=== PATIENT | female | born 1970 | race Caucasian/White ===

== ENCOUNTER 2018-02-02 13:05 | Emergency (ER) | payer OTHER ==
[~2018-02-02] VITALS: Ht 170.2 cm; Wt 83.9 kg
[~2018-02-02 13:05] MED LIST: ASPIR 8181 MG PO; CIPROFLOXACIN250 MG PO; EXCEDRIN EXTRA1 EAC1 PO; LEVOTHYROXINE25 MCG PO; ZOFRAN ODT4 MG PO
[2018-02-02] MEDS ORDERED: NEXIUM20 MG PO (13:22)
[2018-02-02] MEDS ORDERED: ONDANSETRON ODT8 MG PO (15:36)
== END 2018-02-02 16:15 | disposition home or self-care (01) ==
LOC: ED 13:05
DX: G43.909 Migraine, unspecified, not intractable, without status migrainosus (principal); Z88.8 Allergy status to other drugs, medicaments and biological substances; Z88.5 Allergy status to narcotic agent; Z79.82 Long term (current) use of aspirin; Z79.899 Other long term (current) drug therapy
CPT/HCPCS: 96361; 96374; 96375; 99283; J1200; J1885; J2405; J7030

== ENCOUNTER 2018-08-16 10:35 | Emergency (ER) | payer OTHER ==
[~2018-08-16] VITALS: Ht 170.2 cm; Wt 83.9 kg
[~2018-08-16 10:35] MED LIST changes: +NEXIUM20 MG PO; +ONDANSETRON ODT8 MG PO
[2018-08-16] MEDS ORDERED: LEVOTHYROXINE75 MCG PO (10:52)
[2018-08-16] MEDS ORDERED: ONDANSETRON ODT8 MG PO (13:10)
== END 2018-08-16 13:22 | disposition home or self-care (01) ==
LOC: ED 10:35
DX: G43.909 Migraine, unspecified, not intractable, without status migrainosus (principal); E03.9 Hypothyroidism, unspecified; Z88.5 Allergy status to narcotic agent; Z88.8 Allergy status to other drugs, medicaments and biological substances; Z79.899 Other long term (current) drug therapy; Z79.82 Long term (current) use of aspirin
CPT/HCPCS: 96374; 96375; 99284-25; J1885; J2405; J7030

== ENCOUNTER 2018-10-31 07:45 | Emergency (ER) | payer OTHER ==
[~2018-10-31] VITALS: Ht 170.2 cm; Wt 83.9 kg
--- OUTSIDE RECORDS SUMMARY | ~2018-10-31 | XMS | Clinical Summary ---
Demographics + + + | Address | [address] | | | [place] [address] | + + + | Home Phone | | + + + | Preferred Language | Unknown | + + + | Marital Status | | + + + | Catholic Affiliation | Unknown | + + + | Race | Unknown | + + + | Ethnic Group | Unknown | + + + Author + + + | Author | [facility] | | | and [place] | + + + | Organization | [facility] | | | and [place] | + + + | Address | Unknown | + + + | Phone | Unavailable | + + + Support + + +---------+ + | Name | Relationship | Address | Phone | + + +---------+ + | Huy Moore | ECON | Unknown | | + + +---------+ + Care Team Providers + +------+ + | Care Shadowgraph Operator Name | Role | Phone | + +------+ + | Kristie Rausch | PP | | | PA-C | | | + +------+ + Allergies + + + + + + | Active Allergy | Reactions | Severity | Noted | Comments | | | | | Date | | + + + + + + | Prochlorperazine | Hives, Anxiety, Rash | Low | 02/06/20 | | | | | | 18 | | + + + + + + | Penicillins | Hives, Rash | Low | 02/06/20 | | | | | | 18 | | + + + + + + | Promethazine | Hives, Anxiety, Rash | Low | 02/06/20 | | | | | | 18 | | + + + + + + | Metoclopramide | Other (See Comments) | | 10/09/19 | Reaction: Makes | | | | | 19 | her feel like she is | | | | | | crazy | + + + + + + | Pseudoephedrine | Palpitations | Low | 02/06/20 | | | | | | 18 | | + + + + + + Medications + + + +---------+------+------+-------+ | Medication | Sig | Dispensed | Refills | Star | End | Statu | | | | | | t | Date | s | | | | | | Date | | | + + + +---------+------+------+-------+ | Turmeric 500 MG | Take by mouth. | | 0 | | | Activ | | CAPS | | | | | | e | + + + +---------+------+------+-------+ | Cetirizine HCl | Take 10 mg by mouth | | 0 | | | Activ | | (ZYRTEC ALLERGY) 10 | Daily. | | | | | e | | MG liqui-gel | | | | | | | + + + +---------+------+------+-------+ | Multiple | Take by mouth. | | 0 | | | Activ | | Vitamins-Minerals | | | | | | e | | (MULTIVITAMIN | | | | | | | | GUMMIES ADULTS PO) | | | | | | | + + + +---------+------+------+-------+ | Cholecalciferol | Take by mouth | | 0 | | | Activ | | (VITAMIN D-3) 2000 | Daily. | | | | | e | | units CAPS | | | | | | | + + + +---------+------+------+-------+ | dicyclomine | Take 20 mg by mouth | | 0 | | | Activ | | (BENTYL) 20 MG | every 6 hours. | | | | | e | | tablet | | | | | | | + + + +---------+------+------+-------+ | Cranberry-Vit | Take by mouth. | | 0 | | | Activ | | X-Xljzoguqk-Pk | | | | | | e | | (CRANBERRY PLUS | | | | | | | | PROBIOTIC PO) | | | | | | | + + + +---------+------+------+-------+ | Calcium-Magnesium | Take by mouth. | | 0 | | | Activ | | (CALCIUM MAGNESIUM | | | | | | e | | 750) 300-300 MG TABS | | | | | | | + + + +---------+------+------+-------+ | LEVOTHYROXINE | Take by mouth. | | 0 | | | Activ | | SODIUM PO | | | | | | e | + + + +---------+------+------+-------+ | ondansetron | Take 4 mg by mouth | | 0 | | | Activ | | (ZOFRAN ODT) 4 mg | every 8 hours as | | | | | e | | disintegrating | needed for Nausea. | | | | | | | tablet | | | | | | | + + + +---------+------+------+-------+ | FLUTICASONE | Apply topically. | | 0 | | | Activ | | PROPIONATE EX | | | | | | e | + + + +---------+------+------+-------+ | albuterol | Inhale 2 puffs into | | 0 | | | Activ | | (VENTOLIN HFA) 90 | the lungs every 6 | | | | | e | | mcg/puff inhaler | hours as needed for | | | | | | | | Wheezing. | | | | | | + + + +---------+------+------+-------+ | EPINEPHrine | | | 0 | 08/1 | | Activ | | auto-injector 0.3 | | | | 4/20 | | e | | mg/0.3 mL injection | | | | 18 | | | + + + +---------+------+------+-------+ | esomeprazole | Take 20 mg by mouth | | 0 | | | Activ | | (NEXIUM) 20 mg | every morning | | | | | e | | capsule | (before breakfast). | | | | | | + + + +---------+------+------+-------+ | polyethylene | Drink 1st 1/2 prep | 4000 mL | 0 | 09/0 | | Activ | | glycol (GOLYTELY) | at 4pm on March | | | 12/18 | | e | | 236 g suspension | , at 8oz every | | | 18 | | | | | 10-20 minutes; Drink | | | | | | | | 2nd /2 prep at 9pm | | | | | | | | on April 03, | | | | | | | | until gone. | | | | | | + + + +---------+------+------+-------+ | ondansetron | Take 1 tablet by | 2 | 0 | 09/0 | | Activ | | (ZOFRAN) 4 mg tablet | mouth See Admin | tablet | | 12/18 | | e | | | Instructions. If | | | 18 | | | | | nausea with prep. | | | | | | | | Stop prep, take 1 | | | | | | | | tab by mouth,wait 30 | | | | | | | | min, restart prep | | | | | | | | may repeat | | | | | | + + + +---------+------+------+-------+ | Black | Take 2 capsules by | | 0 | | | Activ | | Elderberry,Wade-Caesar | mouth Daily. | | | | | e | | wer, 575 MG CAPS | | | | | | | + + + +---------+------+------+-------+ | cyanocobalamin | Take 250 mcg by | | 0 | | | Activ | | (VITAMIN B-12) 250 | mouth Daily. | | | | | e | | MCG tablet | | | | | | | + + + +---------+------+------+-------+ Active Problems + + + | Problem | Noted Date | + + + | Nausea | 03/24/2018 | + + + | Abdominal pain, unspecified abdominal location | 03/24/2018 | + + + | Gastroesophageal reflux disease, esophagitis presence not | 03/24/2018 | | specified | | + + + | Change in bowel habits | 03/24/2018 | + + + | Obstructive sleep apnea syndrome in adult | 03/24/2018 | + + + Encounters +--------+ + + + + | Date | Type | Specialty | Care Team | Description | +--------+ + + + + | 10/08/ | Abstract | | Provider, | | | 2019 | | | Fran, MD | | +--------+ + + + + from Last 3 Months Family History + + +------+ + | Medical History | Relation | Name | Comments | + + +------+ + | Diabetes | Maternal | | | | | Aunt | | | + + +------+ + | Heart disease | Maternal | | | | | Grandmoth | | | | | er | | | + + +------+ + | Other (see comment) | Mother | | hyperthyroid | + + +------+ + + +------+--------+ + | Relation | Name | Status | Comments | + +------+--------+ + | Maternal Aunt | | | | + +------+--------+ + | Maternal Grandmother | | | | + +------+--------+ + | Mother | | | | + +------+--------+ + Social History + +-------+ +--------+------+ | Tobacco Use | Types | Packs/Day | Years | Date | | | | | Used | | + +-------+ +--------+------+ | Never Smoker | | | | | + +-------+ +--------+------+ + +---+---+---+ | Smokeless Tobacco: | | | | | Never Used | | | | + +---+---+---+ + + +---------+ + | Alcohol Use | Drinks/We | oz/Week | Comments | | | ek | | | + + +---------+ + | Yes | | | social drinker | + + +---------+ + + + + | Sex Assigned at | Date Recorded | | | | + + + | Not on file | | + + + + + + + | Job Start Date | Occupation | Industry | + + + + | Not on file | Not on file | Not on file | + + + + + + + + | Travel History | Travel Start | Travel End | + + + + + + | No recent travel history available. | + + Last Filed Vital Signs + + + + | Vital Sign | Reading | Time Taken | + + + + | Blood Pressure | 118/62 | 03/06/20181008 PDT | + + + + | Pulse | 99 | 03/06/20181008 PDT | + + + + | Temperature | 36.9 C (98.4 F) | 03/06/20181008 PDT | + + + + | Respiratory Rate | 14 | 03/06/20181008 PDT | + + + + | Oxygen Saturation | 99% | 03/06/20181008 PDT | + + + + | Inhaled Oxygen | - | - | | Concentration | | | + + + + | Weight | 83.1 kg (183 lb 3.2 | 03/06/20181008 PDT | | | oz) | | + + + + | Height | 170.2 cm (5' 7") | 03/06/20181008 PDT | + + + + | Body Mass Index | 28.69 | 03/06/2018 1009 PDT | + + + + Plan of Treatment + + + + + | Health Maintenance | Due Date | Last Done | Comments | + + + + + | Vaccine: | | | | | Dtap/Tdap/Td (1 - | 1 | | | | Tdap) | | | | + + + + + | Cervical Cancer | | | | | Screening (Pap) | 2 | | | + + + + + | Vaccine: Influenza | | | | | (Season Ended) | 9 | | | + + + + + Results Not on filefrom Last 3 Months Insurance + +--------+ +--------+ +---------+--------+ | Payer | Benefi | Subscriber | Effect | Phone | Address | Type | | | t Plan | ID | marcial | | | | | | / | | Dates | | | | | | Group | | | | | | + +--------+ +--------+ +---------+--------+ | [employer] | [employer] | [id number] | | [phone] | | Medica | | MEDICAID HMO | HEALTH | | [id number] | 1 | | id | | | MDCD | | esent | | | | | | [place]MO [place] | | | | | | + +--------+ +--------+ +---------+--------+ + +--------+ +--------+ + + | Guarantor Name | Accoun | Relation to | Date | Phone | Billing Address | | | t Type | Patient | of | | | | | | | | | | + +--------+ +--------+ + + | Kathryn Magaña | Person | Self [birth year] | [address] | | | [place] | | 1970 | [phone] | [place] [address] | | | loc | | | 7 (Home) | | + +--------+ +--------+ + + Advance Directives Patient has advance care planning documents on file. For more information, please contact:[facility] [place] [address]
--- OUTSIDE RECORDS SUMMARY | ~2018-10-31 | XMS | Clinical Summary ---
Demographics + + + | Address | [address] | | | [place] [address] | + + + | Home Phone | | + + + | Preferred Language | Unknown | + + + | Marital Status | | + + + | Congregational Affiliation | Unknown | + + + | Race | Unknown | + + + | Ethnic Group | Unknown | + + + Author + + + | Author | [facility] | + + + | Organization | [facility] | + + + | Address | Unknown | + + + | Phone | Unavailable | + + + Support + + +---------+ + | Name | Relationship | Address | Phone | + + +---------+ + | No,Contact | ECON | Unknown | | + + +---------+ + Care Team Providers + +------+ + | Care Machine Stamper Name | Role | Phone | + +------+ + | Sarah Kovacs PA-C | PP | | + +------+ + Allergies + + + + + + | Active Allergy | Reactions | Severity | Noted | Comments | | | | | Date | | + + + + + + | Prochlorperazine | Other (See Comments) | Medium | 04/04/20 | Skin | | | | | 17 | crawling/drugged | | | | | | feeling | + + + + + + | Promethazine | Other (See Comments) | Medium | 04/04/20 | Skin | | | | | 17 | crawling/drugged | | | | | | feeling | + + + + + + Current Medications + + +-------+---------+------+------+-------+ | Prescription | Sig. | Disp. | Refills | Star | End | Statu | | | | | | t | Date | s | | | | | | Date | | | + + +-------+---------+------+------+-------+ | levothyroxine | Take 1 tablet by | | 0 | 09/1 | | Activ | | (SYNTHROID) 50 MCG | mouth daily. | | | 1/20 | | e | | tablet | | | | 17 | | | + + +-------+---------+------+------+-------+ Active Problems + + + | Problem | Noted Date | + + + | Obstructive sleep apnea syndrome in adult | | + + + Family History + + +------+ + | Medical History | Relation | Name | Comments | + + +------+ + | Alcohol abuse | Father | | | + + +------+ + | Gout | Father | | | + + +------+ + | Murmur | Maternal | | | | | Uncle | | | + + +------+ + | Thyroid disease | Mother | | | + + +------+ + | Down syndrome | Son | | | + + +------+ + + +------+--------+ + | Relation | Name | Status | Comments | + +------+--------+ + | Brother | | Alive | | + +------+--------+ + | Daughter | | Alive | | + +------+--------+ + | Daughter | | Alive | | + +------+--------+ + | Daughter | | Alive | | + +------+--------+ + | Father | | Alive | | + +------+--------+ + | Maternal Uncle | | Alive | | + +------+--------+ + | Mother | | Alive | | + +------+--------+ + | Son | | Alive | | + +------+--------+ + | Son | | Alive | | + +------+--------+ + Social History [...] +---------+ + | Yes | | | socially | + + +---------+ + + + + | Sex Assigned at | Date Recorded | | | | + + + | Not on file | | + + + Last Filed Vital Signs + + + + | Vital Sign | Reading | Time Taken | + + + + | Blood Pressure | 110/72 | 04/04/2017 10:02 AM PDT | + + + + | Pulse | 75 | 04/04/2017 9:58 AM PDT | + + + + | Temperature | - | - | + + + + | Respiratory Rate | - | - | + + + + | Oxygen Saturation | 100% | 04/04/2017 9:58 AM PDT | + + + + | Inhaled Oxygen | - | - | | Concentration | | | + + + + | Weight | 83.1 kg (183 lb 3.2 | 04/04/2017 9:58 AM PDT | | | oz) | | + + + + | Height | 170.2 cm (5' 7") | 04/04/2017 9:58 AM PDT | + + + + | Body Mass Index | 28.69 | 04/04/2017 9:58 AM PDT | + + + + Plan [...] filefrom Last 3 Months Insurance + +--------+ +------+-------+ + | Payer | Benefi | Subscriber | Type | Phone | Address | | | t Plan | ID | | | | | | / | | | | | | | Group | | | | | + +--------+ +------+-------+ + | MEDICAID | [employer] | [id number] | | | [address] | | | [place] | | | | [place] | | | [place] | | | | [phone] | | | [employer] [employer] | | | | | + +--------+ +------+-------+ + + +--------+ +--------+ + + | Guarantor Name | Accoun | Relation to | Date | Phone | Billing Address | | | t Type | Patient | of | | | | | | | | | | + +--------+ +--------+ + + | KATHRYN MAGAÑA | Person | Self [birth year] | Home: | [address] | | | [place] | | 1970 | [phone] | [place] [address] | | | loc | | | 1967 | | + +--------+ +--------+ + +
--- OUTSIDE RECORDS SUMMARY | ~2018-10-31 | XMS | Encounter Summary ---
Demographics + + + | Address | [address] | | | [place] [address] | + + + | Home Phone | | + + + | Preferred Language | Unknown | + + + | Marital Status | | + + + | Baptism Affiliation | Unknown | + + + | Race | Unknown | + + + | Ethnic Group | Unknown | + + + Author + + + | Author | [facility] | | | and [place] | + + + | Organization | [facility] | | | and [place] | [...] Team Providers + +------+ + | Care Glass Breaker Name | Role | Phone | + +------+ + | Kristie Rausch | PCP | | | PA-Adrianna | | | + +------+ + Encounter Details +--------+ + + + + | Date | Type | Department | Care Team | Description | +--------+ + + + + | 10/08/ | Abstract | [facility] | Ander, | | | 2019 | | GASTROENTEROLOGY | MD Fran [address] | | | | | [address] [facility] | [place] | | | | | [address] | [place] [address] | | | | | [address] | | | | | | [phone] | | | +--------+ + + + + Social History + +-------+ +--------+------+ | [...] recent travel history available. | + + documented as of this encounter Plan of Treatment Not on filedocumented as of this encounter Visit Diagnoses Not on filedocumented in this encounter"
--- OUTSIDE RECORDS SUMMARY | ~2018-10-31 | XMS | Clinical Summary ---
Demographics + + + | Address | [address] | | | [place] [address] | + + + | Home Phone | | + + + | Preferred Language | Unknown | + + + | Marital Status | | + + + | Sikh Affiliation | Unknown | + + + | Race | Unknown | + + + | Ethnic Group | Unknown | + + + Author + + + | Author | [facility] | + + + | Organization | [facility] | + + + | Address | Unknown | + + + | Phone | Unavailable | + + + Support + + +---------+ + | Name | Relationship | Address | Phone | + + +---------+ + | No,Contact | ECON | Unknown | | + + +---------+ + Care Team Providers + +------+ + | Care Creeler Name | Role | Phone | + [...] +------+-------+ + | MEDICAID | [place] | [id number] | | | [address] | | | N | | | | [place] | | | [place] | | | | [phone] | | | [employer] | | | | | + +--------+ [...] | 1970 | [phone] | [place] [address] | | | loc | | | [phone] | | + +--------+ +--------+ + +
--- OUTSIDE RECORDS SUMMARY | ~2018-10-31 | XMS | Clinical Summary ---
Demographics + + + | Address | [address] | | | [place] [address] | + + + | Home Phone | | + + + | Preferred Language | Unknown | + + + | Marital Status | | + + + | Sabianism Affiliation | Unknown | + + + | Race | Unknown | + + + | Ethnic Group | Unknown | + + + Author + + + | Author | [facility] | | | and [place] | + + + | Organization | [facility] | | | and [place] [...] Team Providers + +------+ + | Care Picture Engraver Name | Role | Phone | + [...] 0 | | | Activ | | [id number] | | | | | | e [...] | [employer] | MODA | [id number] | | [phone] | | Medica | [...] | | [place] | | 1970 | [phone] | [place] [address] | | | loc | | | 7 (Home) | | + +--------+ +--------+ + + Advance Directives Patient has advance care planning documents on file. For more information, please contact:[facility] [address]
--- OUTSIDE RECORDS SUMMARY | ~2018-10-31 | XMS | Encounter Summary ---
Demographics + + + | Address | [address] | | | [place] [address] | + + + | Home Phone | | + + + | Preferred Language | Unknown | + + + | Marital Status | | + + + | Jainism Affiliation | Unknown | + + + | Race | Unknown | + + + | Ethnic Group | Unknown | + + + Author + + + | Author | [facility] | | | and [place] | + + + | Organization | [facility] | | | and [place] | [...] Team Providers + +------+ + | Care Appraiser Auditor Name | Role | Phone | + [...] | | | | [address] [facility] [address] | [place] | | | | | [address] | [place] [address] | | | | | [phone] | | | | | | [phone] | | | +--------+ + + + [...]
[~2018-10-31 07:45] MED LIST changes: +LEVOTHYROXINE75 MCG PO
[2018-10-31] MEDS ORDERED: ERYTHROMYCIN1 GM OP (08:17)
== END 2018-10-31 08:26 | disposition home or self-care (01) ==
LOC: ED 07:45
DX: H01.004 Unspecified blepharitis left upper eyelid (principal); H01.001 Unspecified blepharitis right upper eyelid; E03.9 Hypothyroidism, unspecified; Z88.8 Allergy status to other drugs, medicaments and biological substances; Z88.5 Allergy status to narcotic agent; Z79.899 Other long term (current) drug therapy
CPT/HCPCS: 99283

== ENCOUNTER 2018-11-10 22:48 | Emergency (ER) | payer OTHER ==
[~2018-11-10] VITALS: Ht 170.2 cm; Wt 76.2 kg
[~2018-11-10 22:48] MED LIST changes: +ERYTHROMYCIN1 GM OP
--- OUTSIDE RECORDS SUMMARY | 2018-11-10 22:50 | XMS ---
PreManage Notification: NELY MOSER Security Administrator Health Care Facility Events No recent Security Events currently on file CRITERIA MET - [facility] - 2 Visits in 30 Days CARE PROVIDERS Kristie Aponte Current PAC PHONE: Unknown Diane has no Care Guidelines for this patient. E.DMarlon VISIT COUNT (12 MO.) 4 [facility] TOTAL 4 NOTE: Visits indicate total known visits. ED/UCC VISIT TRACKING (12 MO.) 11/10/2018 22:48 [facility] TYPE: Emergency COMPLAINT: - POSSIBLE ALLERGIC REACTION 10/31/2018 07:45 [facility] TYPE: Emergency COMPLAINT: - SWOLLEN R EYE/NO INJURY DIAGNOSES: - Unspecified blepharitis left upper eyelid - Other terminal superintendent (current) drug therapy - Hypothyroidism, unspecified - Allergy status to other drugs, medicaments and biological substances status - Allergy status to narcotic agent status - Ocular pain, bilateral - Unspecified blepharitis right upper eyelid 08/16/2018 10:36 [facility] TYPE: Emergency COMPLAINT: - MIGRAINE DIAGNOSES: - Allergy status to narcotic agent status - Migraine, unspecified, not intractable, without status migrainosus - Hypothyroidism, unspecified - Allergy status to other drugs, medicaments and biological substances status - Other terminal superintendent (current) drug therapy - Headache - FPC (current) use of aspirin 02/02/2018 13:[address] [facility] [place] TYPE: Emergency COMPLAINT: - HEADACHE DIAGNOSES: - Allergy status to narcotic agent status - FPC (current) use of aspirin - Headache - Other custodial (current) drug therapy - Allergy status to other drugs, medicaments and biological substances status - Migraine, unspecified, not intractable, without status migrainosus INPATIENT VISIT TRACKING (12 MO.) No inpatient visits to display in this time frame [email or web address]
[2018-11-10] MEDS ORDERED: KEFLEX500 MG PO (22:59)
== END 2018-11-11 00:55 | disposition home or self-care (01) ==
LOC: ED 22:48
DX: T36.1X5A Adverse effect of cephalosporins and other beta-lactam antibiotics, initial encounter (principal); E03.9 Hypothyroidism, unspecified; Z88.5 Allergy status to narcotic agent; Z88.8 Allergy status to other drugs, medicaments and biological substances; Z88.6 Allergy status to analgesic agent; Z79.899 Other long term (current) drug therapy
CPT/HCPCS: 80053; 81001; 85025; 99283

== ENCOUNTER 2018-11-14 12:34 | Emergency (ER) | payer OTHER ==
[~2018-11-14] VITALS: Ht 170.2 cm; Wt 76.2 kg
[~2018-11-14 12:34] MED LIST changes: +KEFLEX500 MG PO
--- OUTSIDE RECORDS SUMMARY | 2018-11-14 12:36 | XMS ---
PreManage Notification: NELY MOSER Security Senior Cyber Intelligence Analyst Events No recent Security Events currently on file CRITERIA MET - [facility] - 2 Visits in 30 Days CARE PROVIDERS Kristie Aponte Treatment Current PAC PHONE: Unknown Diane has no Care Guidelines for this patient. E.DMarlon VISIT COUNT ([address] 5 [facility] TOTAL 5 NOTE: Visits indicate total known visits. ED/UCC VISIT TRACKING (12 MO.) 11/14/2018 12:34 [facility] TYPE: Emergency COMPLAINT: - HEADACHE, DIZZINESS 11/10/2018 22:48 [facility] TYPE: Emergency COMPLAINT: - POSSIBLE ALLERGIC REACTION DIAGNOSES: - Adverse effect of cephalosporins and other beta-lactam antibiotics, initial encounter - Allergy status to analgesic agent status - Allergy status to other drugs, medicaments and biological substances status - Allergy status to narcotic agent status - Other long term care pharmacist (current) drug therapy - Adverse effect of cephalosporins and other beta-lactam antibiotics, initial encounter - Hypothyroidism, unspecified 10/31/2018 07:45 [facility] TYPE: Emergency COMPLAINT: - SWOLLEN R EYE/NO INJURY DIAGNOSES: - Unspecified blepharitis left upper eyelid - Other longterm (current) drug therapy - Hypothyroidism, unspecified - [...] medicaments and biological substances status - Other long term care pharmacist (current) drug therapy - Headache - alf (current) use of aspirin 02/02/2018 13:05 [facility] TYPE: Emergency COMPLAINT: - HEADACHE DIAGNOSES: - Allergy status to narcotic agent status - alf (current) use of aspirin - Headache - Other longterm (current) drug therapy - Allergy status to other drugs, medicaments and biological substances status - Migraine, unspecified, not intractable, without status migrainosus INPATIENT VISIT TRACKING (12 MO.) No inpatient visits to display in this time frame [id number]
== END 2018-11-14 14:13 | disposition home or self-care (01) ==
LOC: ED 12:34
DX: R51 Headache (principal); R42 Dizziness and giddiness; E03.9 Hypothyroidism, unspecified; Z88.8 Allergy status to other drugs, medicaments and biological substances; Z88.5 Allergy status to narcotic agent
CPT/HCPCS: 96372; 99283-25; J1885